=== PATIENT | male | born 1950 | race Caucasian/White ===

== ENCOUNTER → 2017-01-08 | Outpatient (CLI) | payer OTHER ==
[2017-01-08 17:57] LABS: BASOPHILS % (AUTO) 0.3 % (0.2-1.0); EOSINOPHILS # (AUTO) 0.1 x10^3/uL (0.0-0.2); HEMATOCRIT 43.5 % (42.0-54.0); HEMOGLOBIN 14.6 g/dL (13.5-18.0); LYMPHOCYTES # (AUTO) 3.1 X10^3/uL (1.3-2.9); MEAN CORPUSCULAR HEMOGLOBIN 30.6 pg (27.0-34.0); MEAN CORPUSCULAR HGB CONC 33.6 g/dL (33.0-35.0); MEAN CORPUSCULAR VOLUME 91.1 fL (80.0-100.0); MEAN PLATELET VOLUME 8.4 fL (7.4-11.0); MONOCYTES # (AUTO) 0.6 x10^3/uL (0.3-0.8); NEUTROPHILS # (AUTO) 4.9 x10^3/uL (2.2-4.8); NEUTROPHILS % (AUTO) 56.7 % (42.0-75.0); PLATELET COUNT 166 X10^3/uL (150.0-450.0); RED BLOOD COUNT 4.78 X10^6/uL (4.7-6.0); RED CELL DISTRIBUTION WIDTH 13.5 % (11.6-16.5); WHITE BLOOD COUNT 8.7 X10^3/uL (3.6-10.0)
[2017-01-08 18:09] LABS: HEMOGLOBIN A1C 11.9 % (4.5-6.2)
[2017-01-08 18:21] LABS: CHOL/HDL RATIO 2.8 (0.0-5.0); CHOLESTEROL 116 mg/dL (0-200); HDL CHOLESTEROL 41 mg/dL (40-60); TRIGLYCERIDES 101 mg/dL (0-150); URIC ACID 5.1 mg/dL (3.5-7.2)
[2017-01-08 18:31] LABS: CREATININE,URINE 35.65 mg/dL (40-278); MICROALBUMIN,URINE 56.7 mg/L
[2017-01-08 18:53] LABS: ERYTHROCYTE SEDIMENTATION RATE 8 MM/HOUR (0-15)
[2017-01-08 19:13] LABS: RHEUMATOID FACTOR NEGATIVE (NEGATIVE)
[2017-01-09 14:33] LABS: ALANINE AMINOTRANSFERASE 21 Units/L (12-78); ALBUMIN 3.6 g/dL (3.4-5.0); ALKALINE PHOSPHATASE 100 Units/L (46-116); ASPARTATE AMINO TRANSFERASE 10 Units/L (15-37); BLOOD UREA NITROGEN 19 mg/dL (7-18); CALCIUM 9.1 mg/dL (8.5-10.1); CARBON DIOXIDE 28.1 mmol/L (21-32); CHLORIDE 103 mmol/L (98-107); COR NA(FOR HYPERGLY) 146 mmol/L (136-145); CREATININE 1.51 mg/dL (0.70-1.30); SODIUM 139 mmol/L (136-145); TOTAL PROTEIN 6.4 g/dL (6.4-8.2); eGFR BLACK RACES 60 (>60); eGFR NON BLACK RACES 49 (>60)
== END | disposition home or self-care (01) | DRG 639 ==
LOC: LAB 17:18
PROVIDERS: ATTEND Nurse Practitioner Family
DX: E11.69 Type 2 diabetes mellitus with other specified complication (principal); M25.50 Pain in unspecified joint; E11.610 Type 2 diabetes mellitus with diabetic neuropathic arthropathy
CPT/HCPCS: 36415; 80053; 80061; 82043; 82306; 82607; 83036; 84550; 85025; 85652; 86140; 86308; 86430; 86592

== ENCOUNTER → 2017-01-11 | Outpatient (CLI) | payer OTHER ==
--- NOTE | 2017-01-12 11:22 | RAD ---
HISTORY: Back pain, radiculopathy Study: Lumbar spine AP, lateral, spot Comparison: None Findings: The alignment is normal. The vertebral bodies are of average height. The disc spaces are preserved. D iffuse spondylosis is present. The pedicles are intact. The SI joints are normal. Facet degenerative joint disease is present bilaterally L4-5, L5-S1. IMPRESSION: Facet degenerative joint disease as described. Diffuse spondylosis Reported By:
--- NOTE | 2017-01-12 11:24 | RAD ---
HISTORY: Neck pain Study: Cervical spine AP and lateral Comparison: None Findings: The prevertebral soft tissues are normal. The alignment is normal. The vertebral bodies are of averag e height. The disc spaces are preserved. Flowing anterior osteophyte formation is present in the lowe r cervical spine. The odontoid is intact. Diffuse bilateral facet degenerative joint disease is prese nt. IMPRESSION: Diffuse bilateral facet degenerative joint disease Anterior spondylosis Reported By:
== END | disposition home or self-care (01) | DRG 552 ==
LOC: RAD 11:55
PROVIDERS: ATTEND Nurse Practitioner Family
DX: M54.17 Radiculopathy, lumbosacral region (principal); M47.892 Other spondylosis, cervical region; M47.896 Other spondylosis, lumbar region
CPT/HCPCS: 72040; 72072; 72100

== ENCOUNTER → 2017-01-28 | Outpatient (CLI) | payer OTHER ==
[2017-01-28 11:53] LABS: BASOPHILS # (AUTO) 0.1 X10^3/uL (0.0-0.1); BASOPHILS % (AUTO) 0.9 % (0.2-1.0); EOSINOPHILS # (AUTO) 0.1 x10^3/uL (0.0-0.2); EOSINOPHILS % (AUTO) 0.9 % (0.9-2.9); HEMATOCRIT 43.8 % (42.0-54.0); HEMOGLOBIN 15.1 g/dL (13.5-18.0); LYMPHOCYTES # (AUTO) 2.9 X10^3/uL (1.3-2.9); LYMPHOCYTES % (AUTO) 34.4 % (21.0-51.0); MEAN CORPUSCULAR HEMOGLOBIN 30.7 pg (27.0-34.0); MEAN CORPUSCULAR HGB CONC 34.4 g/dL (33.0-35.0); MEAN CORPUSCULAR VOLUME 89.3 fL (80.0-100.0); MEAN PLATELET VOLUME 7.8 fL (7.4-11.0); MONOCYTES # (AUTO) 0.6 x10^3/uL (0.3-0.8); MONOCYTES % (AUTO) 7.2 % (0.0-13.0); NEUTROPHILS # (AUTO) 4.8 x10^3/uL (2.2-4.8); NEUTROPHILS % (AUTO) 56.6 % (42.0-75.0); PLATELET COUNT 166 X10^3/uL (150.0-450.0); RED BLOOD COUNT 4.91 X10^6/uL (4.7-6.0); RED CELL DISTRIBUTION WIDTH 13.3 % (11.6-16.5); WHITE BLOOD COUNT 8.5 X10^3/uL (3.6-10.0)
[2017-01-28 12:01] LABS: C-REACTIVE PROTEIN 1.8 mg/L (0-3.0); CALCIUM 9.3 mg/dL (8.5-10.1); CARBON DIOXIDE 32.8 mmol/L (21-32); CREATININE 1.58 mg/dL (0.70-1.30)
[2017-01-28 12:27] LABS: ERYTHROCYTE SEDIMENTATION RATE 12 MM/HOUR (0-15)
--- NOTE | 2017-01-28 12:59 | RAD ---
HISTORY: Cough, pleurodynia Study: Two views the chest Comparison: None Findings: The trachea is midline. The cardiac silhouette is unremarkable. Subsegmental atelectasis and/or sca rring are noted within the left lower lobe. If symptoms persist recommend continued follow-up to excl ude developing infiltrate. Correlation with CT may be helpful as well. There is flattening of the hem idiaphragms with increased retrosternal airspace. Degenerative changes are seen within the visualized spine. IMPRESSION: 1. Left basilar sub atelectasis and/or scarring. Reported By:
[2017-01-28 13:47] LABS: MYCOPLASMA PNEUMONIAE IGM AB NEGATIVE (NEGATIVE)
== END | disposition home or self-care (01) ==
LOC: LAB 11:06
PROVIDERS: ATTEND Nurse Practitioner Family
DX: R07.81 Pleurodynia (principal); R05 Cough; J98.11 Atelectasis
CPT/HCPCS: 36415; 71020; 80048; 85025; 85652; 86140; 86157; 86738; 87070; 87205

== ENCOUNTER → 2017-03-04 | Outpatient (CLI) | payer OTHER ==
[~2017-03-04] MED LIST: NS IV ONE
[2017-03-04 09:56] LABS: CREATININE 1.32 mg/dL (0.70-1.30)
--- NOTE | 2017-03-05 07:13 | CT ---
HISTORY: Chronic cough with prior pneumonia approximately 2 months ago. Study: CT chest with contrast Comparison: Chest x-ray dated January 28, 2017. Technique: Multiple axial images of the chest were obtained from the thoracic inlet to the upper abdo men after the administration of IV contrast. Dose reduction techniques including Automated Exposure C ontrol (AEC) and adjustment of mA and kV were utilized. Findings: The mediastinum does not demonstrate significant pathological lymphadenopathy. There is no paracardi al effusion observed. The thoracic aorta is normal in its contour without evidence for aneurysmal di latation. Moderate to severe atherosclerotic vascular calcifications of the coronary arteries. Limite d opacification of the pulmonary arteries. Otherwise, the central pulmonary arterial system does not demonstrate central filling defects to suggest pulmonary emboli. Bibasilar scarring versus atelectasis. No obvious pulmonary nodule, mass, focal consolidation, pleura l effusion, or pneumothorax. The right kidney is small, which may represent chronic renal disease. 1. 2 cm left adrenal gland lesion with Hounsfield units of less than 10. This represents a benign adenom a. Remaining upper abdominal structures are unremarkable. Degenerative changes of the spine. No aggre ssive osseous lesions. IMPRESSION: 1. No CT evidence of acute thoracic pathology or pulmonary embolus. 2. Moderate to severe coronary artery calcification. Recommend risk stratification and consider Cardi ology consultation. 3. Other chronic findings as above. Reported By:
== END | disposition home or self-care (01) | DRG 203 ==
LOC: RAD 09:25
PROVIDERS: ATTEND Nurse Practitioner Family
DX: J20.8 Acute bronchitis due to other specified organisms (principal); I25.10 Atherosclerotic heart disease of native coronary artery without angina pectoris
CPT/HCPCS: 36415; 71260; 82565; 84520; A4222

== ENCOUNTER → 2017-04-08 | Outpatient (CLI) | payer OTHER ==
--- NOTE | 2017-04-09 15:27 | MRI ---
HISTORY: Low back pain Study: MRI lumbar spine without contrast Comparison: Radiograph 01/11/2017 Technique: Multiplanar multi-sequence MRI of the lumbar spine was obtained. Sagittal T1, sagittal T2 , and stir weighted images, axial T1, and axial T2 images were obtained. Findings: The lumbar spine demonstrates normal alignment. No abnormal cord or marrow signal identified. The co nus of the cord terminates normally. There is atrophy of the right kidney. The left kidney is normal in size. The urinary bladder appears distended. Vertebral body heights are preserved. Multilevel spo ndylosis and disc desiccation is present. T12 -- L1: Mild facet degenerative changes without stenosis. L1 -- L2: Mild facet degenerative changes and lateral disc bulging without significant stenosis. L2 -- L3: Moderate facet degenerative changes and lateral disc bulging asymmetric to the right result ing in moderate right foraminal stenosis. L3 -- L4: Moderate facet degenerative changes and ligamentum thickening with a broad-based circumfere ntial disc bulge resulting in mild spinal canal narrowing and moderate bilateral foraminal stenosis. L4 -- L5: Moderate to severe spinal canal stenosis due to facet hypertrophic changes, ligamentum thic kening, and a broad-based disc bulge. There is also moderate to severe bilateral foraminal and latera l recess stenosis, worse on the left. L5 -- S1: Facet degenerative changes without significant stenosis. IMPRESSION: 1. Moderate to severe spinal canal stenosis at L4-5 as well as moderate to severe bilateral foraminal and lateral recess stenosis, worse on the left at this level. 2. Moderate foraminal stenosis on the right at L2-L3 and bilaterally at L3-L4. 3. Incidental note of atrophy of the right kidney. Reported By:
== END | disposition home or self-care (01) | DRG 552 ==
LOC: RAD 14:52
PROVIDERS: ATTEND Nurse Practitioner Family
DX: M54.17 Radiculopathy, lumbosacral region (principal); M48.061 Spinal stenosis, lumbar region without neurogenic claudication
CPT/HCPCS: 72148

== ENCOUNTER 2017-12-13 04:27 | Inpatient (IN) ==
[2017-12-13 04:39] VITALS: BMI 24.3
[2017-12-13] MEDS ORDERED: NS 1000 ML 1,000 ML ONE ×2 (04:41→06:26)
[2017-12-13] MEDS ORDERED: NS 1000 ML 1,000 ML IV ONE ×2 (04:50→05:00)
[2017-12-13 05:07] LABS: BASOPHILS # (AUTO) 0.1 X10^3/uL (0.0-0.1); BASOPHILS % (AUTO) 0.5 % (0.2-1.0); EOSINOPHILS # (AUTO) 0.1 x10^3/uL (0.0-0.2); EOSINOPHILS % (AUTO) 0.5 % (0.9-2.9); HEMATOCRIT 38.8 % (42.0-54.0); HEMOGLOBIN 13.3 g/dL (13.5-18.0); LYMPHOCYTES # (AUTO) 2.4 X10^3/uL (1.3-2.9); LYMPHOCYTES % (AUTO) 15.2 % (21.0-51.0); MEAN CORPUSCULAR HEMOGLOBIN 30.4 pg (27.0-34.0); MEAN CORPUSCULAR HGB CONC 34.1 g/dL (33.0-35.0); MEAN CORPUSCULAR VOLUME 89.2 fL (80.0-100.0); MEAN PLATELET VOLUME 7.9 fL (7.4-11.0); MONOCYTES # (AUTO) 1.3 x10^3/uL (0.3-0.8); MONOCYTES % (AUTO) 8.4 % (0.0-13.0); NEUTROPHILS # (AUTO) 11.6 x10^3/uL (2.2-4.8); NEUTROPHILS % (AUTO) 75.4 % (42.0-75.0); PLATELET COUNT 158 X10^3/uL (150.0-450.0); RED BLOOD COUNT 4.35 X10^6/uL (4.7-6.0); RED CELL DISTRIBUTION WIDTH 13.4 % (11.6-16.5); WHITE BLOOD COUNT 15.4 X10^3/uL (3.6-10.0)
--- NOTE | 2017-12-13 05:12 | DR.GENAD ---
HPI Time Seen Time Seen by Provider: 12/13/17 05:07 PCP Primary Care Physician: Natalie Yost Complaint/Symptoms Chief Complaint Doctors Comments: Patient states that he has been sick since Wednesday (two days) with vomiting. He denies diarrhea or fever. He denies cardiopulmonary disease. His spouse states that the vomiting was almost continuous of brownish material. He is alert in NAD Chief Complaint:: States that he been sick on his stomach and dizziness, he states that he can not walk and does not have any strength.Eating intake is poor. Self Treatment fo Chief Complaint: No treatment Source History Provided: Patient Mode of Arrival Mode of Arrival: Wheelchair Timing Onset of Chief Complaint: 12/10/17 PMH PMH Past Medical History: Yes Past Medical History: Diabetes Past Medical History Comment: Stomach Ulcers Past Surgical History: No Family History History of Family Medical Conditions: Yes Family Medical History: Cancer and Coronary Artery Disease Social History Does patient currently use any type of tobacco product: No Have you used tobacco products in the last 12 months: No Type of Tobacco Use: Cigarettes How many years tobacco product used: 20 Does any household member use tobacco: No Alcohol Use: None Lives With: Spouse Lives Where: Home infectious screening In the last 2 months have you had wt loss of >10#?: NO Have you had fever, night sweats or hemotysis?: No Have you traveled outside the country in the last 6 months?: No Isolation: Standard ROS Review of Systems Constitutional: No Symptoms Reported and Weakness Eyes: No Symptoms Reported ENTM: No Symptoms Reported Respiratoy: Non-Productive Cough Cardiovascular: No Symptoms Reported; negative Chest Pain Gastrointestinal/Abdominal: No Symptoms Reported Genitourinary: No Symptoms Reported Neurological: No Symptoms Reported Musculoskeletal: No Symptoms Reported Integumentary: No Symptoms Reported Hematologic/Lymphatic: No Symptoms Reported Endocrine: No Symptoms Reported PE Vital Signs Vitals: Temperature 97.6 F Pulse Rate [Apical] 87 Pulse Rate 83 Respiratory Rate 15 Blood Pressure [Right Arm] 99/63 Blood Pressure 68/51 O2 Sat by Pulse Oximetry 93 General Limitations: No Limitations General Appearance: Alert and In No Apparent Distress; negative Anxious, Lethargic and In Distress Head Head Exam: Normal Inspection, Atraumatic and Normocephalic Eyes Eye exam: Normal Appearance, PERRL and EOMI ENT ENT Exam: Normal Exam, Normal Oropharynx (dry), Normal External Ear Exam, Mucous Membranes Dry and TM's Normal Bilaterally External Ear Exam: Normal External Inspection and Auricular Hematoma TM/Canal Exam: Bilateral: Normal Nose Exam: Normal Nose Exam Mouth Exam: Normal Inspection; negative Lip Swelling and Tongue Swelling Throat Exam: Normal Inspection Neck Neck Exam: Normal Inspection and Full ROM Chest Chest Inspection: Normal Inspection and Symmetric Chest Wall Rise Respiratory Respiratory Exam: Respiratory Distress Respiratory Exam: Bilateral: Clear to Auscultation Cardiovascular Cardiovascular Exam: Regular Rate and Normal Rhythm Abdominal Exam Abdominal Exam: Normal Inspection and Normal Bowel Sounds; negative Rebound Abdominal Tenderness: negative RUQ, RLQ, LUQ, LLQ, Epigastrium, Diffuse and Severe Extremities Extremities Exam: Normal Inspection and Full ROM; negative Normal Capillary Refill Back Back Exam: Normal Inspection and Full ROM Neurologic Neurological Exam: Alert, Oriented X3 and CN II-XII Intact Psychiatric Psychiatric Exam: Normal Affect, Normal Mood and Agitated COURSE Treatment Treatment: Patient hypotensive, trendelenburg position, initial BP 68/50; increased to 99/57 s/p 3L. patient is alert in no distress. Denies any pain or respiratory distress. Reevaluation 1st: Improved (0550) Consultation Called: 06:30 Consultation Comments: Dr. Cleaning agreed to admit for further evaluation and treatment. [facility] Labs Reviewed Laboratory Results Reviewed?: Yes Result Diagrams: 12/13/17 04:45 12/13/17 04:45 Laboratory: INR Target Range - 12/13/17 04:45 INR 0.94 (0.8-1.3) 12/13/17 04:45 APTT 34.0 SECONDS (22.9-36.5) 12/13/17 04:45 PTT Comment - 12/13/17 04:45 Sodium 137 mmol/L (136-145) 12/13/17 04:45 Corrected Sodium 139 mmol/L (136-145) 12/13/17 04:45 Potassium 4.1 mmol/L (3.5-5.1) 12/13/17 04:45 Chloride 100 mmol/L (98-107) 12/13/17 04:45 Carbon Dioxide 32.1 mmol/L (21-32) H 12/13/17 04:45 BUN 63 mg/dL (7-18) H 12/13/17 04:45 Creatinine 3.32 mg/dL (0.70-1.30) H 12/13/17 04:45 Est GFR (MDRD) Af Amer 24 (>60) L 12/13/17 04:45 Est GFR (MDRD) Non-Af 20 (>60) L 12/13/17 04:45 Glucose 168 mg/dL (65-99) H 12/13/17 04:45 POC Glucose (mg/dL) 164 mg/dL (65-99) H 12/13/17 05:09 Calcium 8.4 mg/dL (8.5-10.1) L 12/13/17 04:45 Corrected Calcium 9.4 mg/dL (8.5-10.1) 12/13/17 04:45 Total Bilirubin 0.50 mg/dL (0.2-1.0) 12/13/17 04:45 AST 13 Units/L (15-37) L 12/13/17 04:45 ALT 26 Units/L (12-78) 12/13/17 04:45 Alkaline Phosphatase 82 Units/L (46-116) 12/13/17 04:45 Creatine Kinase 31 Units/L (39-308) L 12/13/17 04:45 CK-MB (CK-2) 1.7 ng/mL (0-4.0) 12/13/17 04:45 CK/CKMB % Calc 5.5 % (<4) 12/13/17 04:45 Troponin I < 0.02 ng/mL (0-1.5) 12/13/17 04:45 C-Reactive Protein 178.90 mg/L (0-3.0) H 12/13/17 04:45 Total Protein 6.3 g/dL (6.4-8.2) L 12/13/17 04:45 Albumin 2.8 g/dL (3.4-5.0) L 12/13/17 04:45 Globulin 3.5 g/dL (2.5-4.5) 12/13/17 04:45 Albumin/Globulin Ratio 0.8 Ratio (1.1-2.1) L 12/13/17 04:45 Diagnosis Discharge Problem: Acute prerenal azotemia, Admitted with dehydration
[2017-12-13 05:14] LABS: BLOOD UREA NITROGEN 63 mg/dL (7-18); CALCIUM 8.4 mg/dL (8.5-10.1); CARBON DIOXIDE 32.1 mmol/L (21-32); CHLORIDE 100 mmol/L (98-107); COR NA(FOR HYPERGLY) 139 mmol/L (136-145); CREATININE 3.32 mg/dL (0.70-1.30); SODIUM 137 mmol/L (136-145); TROPONIN I < 0.02 ng/mL (0-1.5); eGFR NON BLACK RACES 20 (>60)
[2017-12-13 05:19] LABS: ALANINE AMINOTRANSFERASE 26 Units/L (12-78); ALBUMIN 2.8 g/dL (3.4-5.0); ALKALINE PHOSPHATASE 82 Units/L (46-116); ASPARTATE AMINO TRANSFERASE 13 Units/L (15-37); CKMB % 5.5 % (<4); COR CA(FOR HYPOALB) 9.4 mg/dL (8.5-10.1); CREATINE KINASE 31 Units/L (39-308); CREATINE KINASE MB 1.7 ng/mL (0-4.0); TOTAL PROTEIN 6.3 g/dL (6.4-8.2)
[2017-12-13] MEDS ORDERED: NS 1000 ML 2,000 ML ONE (05:47)
--- NOTE | 2017-12-13 05:53 | RAD ---
Chest, one view Indication: Weakness Comparison: 01/28/2017 Findings: The left costophrenic sulcus was excluded. Heart size is normal. The lungs are clear withou t focal infiltrates or large pleural effusion. Impression: No acute chest process. Reported By:
[2017-12-13] MEDS ORDERED: HumuLIN R SUBCUT PRN (06:44)
[2017-12-13] MEDS ORDERED: ZESTRIL TAB 20 MG PO SCH (07:00)
[2017-12-13] MEDS ORDERED: NS 1000 ML 1,000 ML IV SCH (07:00)
[2017-12-13] MEDS ORDERED: JANUVIA PO SCH (09:00)
[2017-12-13] MEDS ORDERED: ASPIRIN EC 81 MG PO SCH (09:00)
[2017-12-13] MEDS ORDERED: NEURONTIN CAP 400 MG PO SCH (09:00)
[2017-12-13] MEDS ORDERED: INSULIN DETEMIR subcut SCH (09:00)
[2017-12-13] MEDS: NS 1000 ML 1,000 ML IV SCH ×4 (09:44→20:42)
[2017-12-13] MEDS: NORCO 5/325 MG TAB PO SCH ×2 (09:47→20:42)
[2017-12-13] MEDS: ACTOS PO SCH (09:47)
[2017-12-13] MEDS: NEURONTIN CAP 400 MG PO SCH ×2 (09:47→21:00)
[2017-12-13] MEDS: ASPIRIN EC 81 MG PO SCH (09:47)
[2017-12-13] MEDS: JANUVIA PO SCH (09:55)
[2017-12-13] MEDS: DONNATAL TAB PO SCH ×4 (10:23→20:44)
--- NOTE | 2017-12-13 12:18 | RAD ---
HISTORY: Acute left lower quadrant pain and vomiting Study: KUB Comparison: Lumbar spine x-rays done 01/11/2017. Findings: Bowel gas pattern is nonspecific. No evidence of bowel obstruction is seen. No opaque stone is identi fied. There is multilevel lumbar spondylosis. Degenerative changes are present involving both hips. IMPRESSION: No evidence of bowel obstruction. Reported By:
[2017-12-13] MEDS: HumuLIN R SUBCUT PRN ×3 (13:18→20:53)
[2017-12-13] MEDS ORDERED: SNACK - Diabetic Appropriate PO SCH (20:00)
[2017-12-13] MEDS ORDERED: LIPITOR TAB 10 MG PO SCH (21:00)
[2017-12-13] MEDS: SNACK - Diabetic Appropriate PO SCH (21:23)
[2017-12-14] MEDS: NS 1000 ML 1,000 ML IV SCH ×6 (01:55→17:29)
[2017-12-14] MEDS ORDERED: COLACE CAP 100 MG PO PRN (04:08)
[2017-12-14 05:50] LABS: BASOPHILS # (AUTO) 0.1 X10^3/uL (0.0-0.1); BASOPHILS % (AUTO) 0.5 % (0.2-1.0); EOSINOPHILS # (AUTO) 0.1 x10^3/uL (0.0-0.2); EOSINOPHILS % (AUTO) 0.5 % (0.9-2.9); HEMOGLOBIN 13.6 g/dL (13.5-18.0); LYMPHOCYTES # (AUTO) 1.7 X10^3/uL (1.3-2.9); LYMPHOCYTES % (AUTO) 12.2 % (21.0-51.0); MEAN CORPUSCULAR HEMOGLOBIN 30.6 pg (27.0-34.0); MEAN PLATELET VOLUME 7.8 fL (7.4-11.0); NEUTROPHILS # (AUTO) 10.9 x10^3/uL (2.2-4.8); NEUTROPHILS % (AUTO) 79.8 % (42.0-75.0); PLATELET COUNT 164 X10^3/uL (150.0-450.0); RED BLOOD COUNT 4.44 X10^6/uL (4.7-6.0); RED CELL DISTRIBUTION WIDTH 13.7 % (11.6-16.5); WHITE BLOOD COUNT 13.7 X10^3/uL (3.6-10.0)
[2017-12-14] MEDS ORDERED: PEPCID 20 MG IV PREMIX* 20 MG/50 ML BAG IV ONE (06:00)
[2017-12-14 06:02] LABS: ALBUMIN 2.6 g/dL (3.4-5.0); CALCIUM 7.8 mg/dL (8.5-10.1); CARBON DIOXIDE 23.4 mmol/L (21-32); COR CA(FOR HYPOALB) 8.9 mg/dL (8.5-10.1); CREATININE 1.66 mg/dL (0.70-1.30); TOTAL PROTEIN 6.1 g/dL (6.4-8.2)
[2017-12-14] MEDS ORDERED: ZOFRAN INJ 4 MG VIAL ONE (07:31)
[2017-12-14] MEDS: ZOFRAN INJ 4 MG VIAL IVP PRN ×2 (07:36→21:04)
[2017-12-14] MEDS: DONNATAL TAB PO SCH ×4 (08:12→21:02)
[2017-12-14] MEDS: ACTOS PO SCH (08:12)
[2017-12-14] MEDS: NEURONTIN CAP 400 MG PO SCH ×2 (08:12→21:02)
[2017-12-14] MEDS: NORCO 5/325 MG TAB PO SCH ×4 (08:12→21:03)
[2017-12-14] MEDS: JANUVIA PO SCH (08:13)
[2017-12-14] MEDS: ASPIRIN EC 81 MG PO SCH (08:13)
[2017-12-14] MEDS: COLACE CAP 100 MG PO SCH ×2 (08:19→21:00)
[2017-12-14] MEDS: LINZESS PO SCH (08:20)
[2017-12-14] MEDS: HumuLIN R SUBCUT PRN ×3 (11:05→21:30)
[2017-12-14] MEDS ORDERED: MAALOX or MYLANTA PO PRN (11:23)
[2017-12-14] MEDS: SNACK - Diabetic Appropriate PO SCH (20:06)
[2017-12-14] MEDS: LIPITOR TAB 10 MG PO SCH (21:05)
--- NOTE | 2017-12-14 22:58 | RAD ---
HISTORY: NG tube placement, vomiting Study: Single-view of the abdomen Comparison: 12/13/2017 Findings: Enteric tube terminates in the region of the mid stomach. Bowel gas pattern is nonspecific, nonobstru ctive. Lung bases are clear. IMPRESSION: 1. Enteric tube terminates in the mid stomach. Reported By:
[2017-12-15] MEDS: NS 1000 ML 1,000 ML IV SCH ×4 (04:12→16:24)
[2017-12-15] MEDS: NORCO 5/325 MG TAB PO SCH ×3 (05:22→13:48)
[2017-12-15 06:13] LABS: BASOPHILS # (AUTO) 0.1 X10^3/uL (0.0-0.1); BASOPHILS % (AUTO) 0.4 % (0.2-1.0); EOSINOPHILS % (AUTO) 0.1 % (0.9-2.9); HEMATOCRIT 39.8 % (42.0-54.0); HEMOGLOBIN 13.5 g/dL (13.5-18.0); LYMPHOCYTES # (AUTO) 1.6 X10^3/uL (1.3-2.9); LYMPHOCYTES % (AUTO) 12.5 % (21.0-51.0); MEAN CORPUSCULAR HEMOGLOBIN 30.5 pg (27.0-34.0); MEAN CORPUSCULAR HGB CONC 34.1 g/dL (33.0-35.0); MEAN CORPUSCULAR VOLUME 89.5 fL (80.0-100.0); MEAN PLATELET VOLUME 7.2 fL (7.4-11.0); MONOCYTES # (AUTO) 0.8 x10^3/uL (0.3-0.8); MONOCYTES % (AUTO) 6.4 % (0.0-13.0); NEUTROPHILS # (AUTO) 10.5 x10^3/uL (2.2-4.8); NEUTROPHILS % (AUTO) 80.6 % (42.0-75.0); PLATELET COUNT 172 X10^3/uL (150.0-450.0); RED BLOOD COUNT 4.45 X10^6/uL (4.7-6.0); RED CELL DISTRIBUTION WIDTH 13.9 % (11.6-16.5)
[2017-12-15 06:24] LABS: ALANINE AMINOTRANSFERASE 14 Units/L (12-78); ALBUMIN 2.5 g/dL (3.4-5.0); ALKALINE PHOSPHATASE 79 Units/L (46-116); ASPARTATE AMINO TRANSFERASE 12 Units/L (15-37); BLOOD UREA NITROGEN 34 mg/dL (7-18); CARBON DIOXIDE 20.7 mmol/L (21-32); CHLORIDE 109 mmol/L (98-107); COR CA(FOR HYPOALB) 9.2 mg/dL (8.5-10.1); COR NA(FOR HYPERGLY) 144 mmol/L (136-145); CREATININE 1.43 mg/dL (0.70-1.30); SODIUM 141 mmol/L (136-145); eGFR NON BLACK RACES 52 (>60)
--- NOTE | 2017-12-15 06:34 | RAD ---
HISTORY: Nausea, vomiting, abdominal pain Study: Flat and upright abdomen, PA chest Comparison: 12/14/2017 Findings: There is nasogastric tube present. The abdominal gas pattern is nonspecific and nonobstructive. No pn eumoperitoneum is identified. No abnormal masses or abnormal calcifications are present. The chest is clear. IMPRESSION: Unremarkable obstruction series Reported By:
[2017-12-15] MEDS ORDERED: CITROMA NG ONE (08:12)
[2017-12-15] MEDS: JANUVIA PO SCH (09:25)
[2017-12-15] MEDS: LIPITOR TAB 10 MG PO SCH (09:25)
[2017-12-15] MEDS: NEURONTIN CAP 400 MG PO SCH (09:26)
[2017-12-15] MEDS: ASPIRIN EC 81 MG PO SCH (09:26)
[2017-12-15] MEDS: LINZESS PO SCH (09:26)
[2017-12-15] MEDS: ACTOS PO SCH (09:30)
[2017-12-15] MEDS: ZOFRAN INJ 4 MG VIAL IVP PRN ×2 (09:33→15:05)
[2017-12-15] MEDS: HumuLIN R SUBCUT PRN ×2 (11:24→16:24)
[2017-12-15] MEDS ORDERED: DILAUDID INJ IVP PRN (14:01)
--- NOTE | 2017-12-15 14:54 | CT ---
HISTORY: Nausea, vomiting, abdominal pain Study: CT abdomen and pelvis without contrast Comparison: Same day radiograph Technique: Multiple axial images of the abdomen and pelvis were obtained without IV contrast. Dose reduction t echniques including Automated Exposure Control (AEC) and adjustment of mA and kV were utilized. Findings: Please note evaluation is limited without use of IV contrast. There is a small left pleural effusion with left basilar atelectasis. Heart size is normal. The live r, spleen, pancreas, and adrenal glands are unremarkable in their unenhanced CT appearance. The gallb ladder is normal. There is atrophy of the right kidney. No renal calculi or obstructive uropathy iden tified. No free intraperitoneal air. There is gastric distention with NG tube terminating in the stomach. Mul tiple dilated small bowel loops with scattered air-fluid levels are noted measuring up to 4.2 cm. The re is a transition point in the right mid to lower abdomen approximately axial image 59 and coronal i mage 29 with decompression of distal small bowel loops and colon concerning for obstruction. There is a moderate amount of free fluid present suggesting reactive ascites. The appendix is normal. Inciden dottie note is made of a 4.6 x 3.1 cm fatty mass associated with the rectal wall suggesting a lipoma on axial image 80. There are degenerative changes of the lumbosacral spine. Limited evaluation of vascular structures du e to lack of contrast. No pathologically enlarged lymph nodes are identified. The urinary bladder is unremarkable. IMPRESSION: 1. Findings as described concerning for small bowel obstruction with transition point in the right mi d to lower abdomen. Surgical evaluation is recommended. 2. Moderate amount of free fluid that may represent reactive ascites. 3. Small left pleural effusion. 4. 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 5. Atrophy of the right kidney. Reported By:
[2017-12-15] MEDS ORDERED: DILAUDID INJ IVP ONE (16:05)
[2017-12-15 16:16] VITALS: BP 132/69
[2017-12-15] MEDS ORDERED: COLACE SYRUP 100 MG UDC NG SCH (21:00)
== END 2017-12-15 19:40 | disposition short-term general hospital (02) | DRG 392 ==
LOC: ER 04:27 → ICU 07:15
PROVIDERS: ADMIT Obstetrics & Gynecology Obstetrics; ATTEND Obstetrics & Gynecology Obstetrics
DX: R79.82 Elevated C-reactive protein (CRP); N17.8 Other acute kidney failure; R94.4 Abnormal results of kidney function studies; K56.690 Other partial intestinal obstruction; D72.828 Other elevated white blood cell count; R19.7 Diarrhea, unspecified; E87.6 Hypokalemia; E86.0 Dehydration; R11.2 Nausea with vomiting, unspecified; I10 Essential (primary) hypertension; K56.41 Fecal impaction; R79.89 Other specified abnormal findings of blood chemistry; E78.2 Mixed hyperlipidemia; R53.1 Weakness; K52.89 Other specified noninfective gastroenteritis and colitis; E11.65 Type 2 diabetes mellitus with hyperglycemia
CPT/HCPCS: 36415; 71010; 71045; 74000; 74018; 74022; 74176; 80053; 82550; 82553; 84484; 85025; 85610; 85730; 86140; 93005; 93010; 96365; 96367; 99284; A4222; S0028; J1170; J1815; J2405; J7030

== ENCOUNTER 2021-06-24 14:55 | Observation (INO) ==
[2021-06-24 15:10] VITALS: BMI 29.9
--- NOTE | 2021-06-24 16:55 | DR.RPMALE ---
Rectal pain, Male PCP Primary Care Physician: Dr Helm Complaint Chief Complaint:: Pt c/o hemorrhoid pain and swelling that started 2-3 days ago and has continued to get worse. Chief Complaint Doctors Comments: PATIENT IS 71YR OLD MALE IN ER WITH PAIN AND SWELLING IN RECTAL AREA TIMES 3 DAYS. WITH SOME DRAINAGE. HISTORY DM AND HTN. PATIENT ALSO HAVE HISTORY OF HEMORRHOIDS. NO FEVER. ABLE TO HAVE BM. Source History Provided: Patient Mode of Arrival Mode of Arrival: Wheelchair PMH PMH Past Medical History: Yes Past Medical History: Anxiety, Depression, Diabetes, Dyslipidemia and Hypertension Past Medical History Comment: chronic back pain, neuropathy, hemorrhoids Past Surgical History: Yes Surgical History: Abdominal Surgery Past Surgical History Comment: SBO Family History History of Family Medical Conditions: Yes Family Medical History: Diabetes Mellitus, Cancer, [place] and Hypertension Social History Alcohol Use: None Do you use any recreational Drugs:: No Lives With: Spouse Lives Where: Home Travel Risk Coronavirus risk:travel/contact w/high risk person: No Has patient experienced Coronavirus symptoms: No Infectious screening Have you traveled outside the country in the last 6 months?: No Isolation: Standard ROS Review of Systems Constitutional: No Symptoms Reported and See HPI; negative Fever, Weakness and Fatigue Eyes: No Symptoms Reported and See HPI ENTM: No Symptoms Reported and See HPI; negative Nose Discharge and Nose Congestion Respiratoy: No Symptoms Reported and See HPI; negative Moist Cough, Short of Breath and Wheezing Cardiovascular: No Symptoms Reported and See HPI; negative Chest Pain Gastrointestinal/Abdominal: No Symptoms Reported and See HPI; negative Abdominal Pain, Diarrhea, Nausea and Vomiting Genitourinary: See HPI, Pain (RECTAL.) and Bleeding (RECTAL) Neurological: No Symptoms Reported and See HPI; negative Headache, Dizziness and Speech Problem Musculoskeletal: No Symptoms Reported, See HPI and Back Pain (LOWER BACK PAIN.) Integumentary: No Symptoms Reported and See HPI; negative Rash and Juandice Hematologic/Lymphatic: No Symptoms Reported and See HPI; negative Easy Bruising Endocrine: No Symptoms Reported and See HPI; negative Increased Thirst and Increased Urine Psychiatric: No Symptoms Reported and See HPI All Other Systems: Reviewed and Negative PE, MALE Vital Signs Vitals: Temperature 97.4 F Pulse Rate 74 Respiratory Rate 16 Blood Pressure [Left Arm] 148/73 Blood Pressure 97/57 O2 Sat by Pulse Oximetry 95 General Limitations: No Limitations General Appearance: Alert and In No Apparent Distress Head Head Exam: Normal Inspection Eyes Eye exam: Normal Appearance; negative Scleral Icterus and Conjunctival Injection ENT ENT Exam: Normal Exam, Normal Oropharynx, Normal External Ear Exam and TM's Normal Bilaterally Neck Neck Exam: Normal Inspection and Trachea Midline; negative Tenderness Chest Chest Inspection: Normal Inspection and Symmetric Chest Wall Rise; negative Tenderness Respiratory Respiratory Exam: Normal Lung Sounds Bilat; negative Accessory Muscle Use, Chest Wall Tenderness and Respiratory Distress Respiratory Exam: Bilateral: Clear to Auscultation Cardiovascular Cardiovascular Exam: Regular Rate, Normal Rhythm and Normal Heart Sounds; negative Systolic Murmur and Diastolic Murmur Abdominal Exam Abdominal Exam: Normal Inspection, Normal Bowel Sounds, Soft and Tenderness Abdominal Tenderness: Other (RECTAL SWELLING AND TENDERNESS WITH SMALL DRAINAGE.) Rectal Rectal Exam: Hemorrhoids (THROMBOSED HEMORRHIOD) and Tenderness (RECTAL TENDERNESS.) Genitourinary Exam: Male: Normal Inspection Scrotal Exam: Normal: Left Extremities Extremities Exam: Normal Inspection and Normal Capillary Refill Back Back Exam: Normal Inspection; negative (R) CVA Tenderness and (L) CVA Tenderness Neurologic Neurological Exam: Alert and Oriented X3; negative Motor Sensory Deficit Psychiatric Psychiatric Exam: Normal Affect and Normal Mood Skin Skin Exam: Warm, Dry, Intact and Normal Color MDM, MALE Additional Information Obtained Additional Information Obtained: Family Differential Diagnosis Differential Diagnosis: Perirectal Abscess, Rectal Prolapse, Thrombosed Hemorrhoid and UTI COURSE Treatment Treatment: SEE ORDERS DONE WHILE PATIENT WAS IN ER. LABS, XRAY AND EKG DISCUSSED WITH PATIENT. HE WAS ADMITTED FOR FURTHER MANAGEMENT. Consultation Consultation Comments: DISCUSSED PATIENT WITH DR. LOPEZ, SURGEON. HE WANT PCP TO ADMITTED PATIENT. DR. HELM ADMITTED PATIENT. Education/Counseling Education/Counseling: Patient and Family Educated On: Diagnosis [facility] Labs Reviewed Laboratory Results Reviewed?: Yes Result Diagrams: 06/26/21 05:41 06/26/21 05:41 Laboratory: WBC 12.3 X10^3/uL (3.6-10.0) H 06/24/21 17:55 RBC 3.03 X10^6/uL (4.7-6.0) L 06/24/21 17:55 Hgb 8.9 g/dL (13.5-18.0) L 06/24/21 17:55 Hct 27.4 % (42.0-54.0) L 06/24/21 17:55 MCV 90.4 fL (80.0-100.0) 06/24/21 17:55 MCH 29.3 pg (27.0-34.0) 06/24/21 17:55 MCHC 32.4 g/dL (33.0-35.0) L 06/24/21 17:55 RDW 14.1 % (11.6-16.5) 06/24/21 17:55 Plt Count 250 X10^3/uL (150.0-450.0) 06/24/21 17:55 MPV 6.6 fL (7.4-11.0) L 06/24/21 17:55 Neut % (Auto) 72.3 % (42.0-75.0) 06/24/21 17:55 Lymph % (Auto) 17.7 % (21.0-51.0) L 06/24/21 17:55 [place] % (Auto) 8.0 % (0.0-13.0) 06/24/21 17:55 Eos % (Auto) 0.8 % (0.9-2.9) L 06/24/21 17:55 Baso % (Auto) 1.2 % (0.2-1.0) H 06/24/21 17:55 Neut # (Auto) 8.9 x10^3/uL (2.2-4.8) H 06/24/21 17:55 Lymph # (Auto) 2.2 X10^3/uL (1.3-2.9) 06/24/21 17:55 [place] # (Auto) 1.0 x10^3/uL (0.3-0.8) H 06/24/21 17:55 Eos # (Auto) 0.1 x10^3/uL (0.0-0.2) 06/24/21 17:55 Baso # (Auto) 0.1 X10^3/uL (0.0-0.1) 06/24/21 17:55 Absolute Nucleated RBC 0.1 /100WBC 06/24/21 17:55 Sodium 144 mmol/L (136-145) 06/24/21 17:55 Corrected Sodium TNP 06/24/21 17:55 Potassium 5.4 mmol/L (3.5-5.1) H 06/24/21 17:55 Chloride 112 mmol/L (98-107) H 06/24/21 17:55 Carbon Dioxide 24.1 mmol/L (21-32) 06/24/21 17:55 BUN 50 mg/dL (7-18) H 06/24/21 17:55 Creatinine 2.14 mg/dL (0.70-1.30) H 06/24/21 17:55 Est GFR (MDRD) Af Amer 39 (>60) L 06/24/21 17:55 Est GFR (MDRD) Non-Af 32 (>60) L 06/24/21 17:55 Glucose 105 mg/dL (65-99) H 06/24/21 17:55 Calcium 8.0 mg/dL (8.5-10.1) L 06/24/21 17:55 Corrected Calcium 9.2 mg/dL (8.5-10.1) 06/24/21 17:55 Total Bilirubin 0.10 mg/dL (0.2-1.0) L 06/24/21 17:55 AST 9 Units/L (15-37) L 06/24/21 17:55 ALT 16 Units/L (12-78) 06/24/21 17:55 Alkaline Phosphatase 93 Units/L (46-116) 06/24/21 17:55 Total Protein 6.2 g/dL (6.4-8.2) L 06/24/21 17:55 Albumin 2.5 g/dL (3.4-5.0) L 06/24/21 17:55 Globulin 3.7 g/dL (2.5-4.5) 06/24/21 17:55 Albumin/Globulin Ratio 0.7 Ratio (1.1-2.1) L 06/24/21 17:55 XRAY XRAY Interpreted by: Radiologist (REPORT NOTED.) and Self EKG Rate: 76 [place]: Normal Rhythm: NSR Block: None Hypertrophy: None ST: Nonsp Opioid Opioid Risk Tool Age (Ney box if 16-45): No Total: 0 Total Score Risk Category: Low Risk Copyright: Herrera predicting aberrant behaviors Diagnosis Discharge Problem: Rectal pain, Thrombosed hemorrhoids, Strangulated hemorrhoids Instructions Instructions: Anemia Surgical Procedures for Hemorrhoids, Care After Hyperkalemia, [id number] Gastrointestinal Bleeding Surgical Procedures for Hemorrhoids Hemorrhoids, [id number] Nonsurgical Procedures for Hemorrhoids, Care After Hemorrhoids Forms: Excuse From Work or School Precautions for COVID19 [facility] Social Distancing
[2021-06-24 18:04] LABS: BASOPHILS # (AUTO) 0.1 X10^3/uL (0.0-0.1); BASOPHILS % (AUTO) 1.2 % (0.2-1.0); EOSINOPHILS # (AUTO) 0.1 x10^3/uL (0.0-0.2); EOSINOPHILS % (AUTO) 0.8 % (0.9-2.9); HEMATOCRIT 27.4 % (42.0-54.0); HEMOGLOBIN 8.9 g/dL (13.5-18.0); LYMPHOCYTES # (AUTO) 2.2 X10^3/uL (1.3-2.9); LYMPHOCYTES % (AUTO) 17.7 % (21.0-51.0); MEAN CORPUSCULAR HEMOGLOBIN 29.3 pg (27.0-34.0); MEAN CORPUSCULAR HGB CONC 32.4 g/dL (33.0-35.0); MEAN CORPUSCULAR VOLUME 90.4 fL (80.0-100.0); MEAN PLATELET VOLUME 6.6 fL (7.4-11.0); NEUTROPHILS # (AUTO) 8.9 x10^3/uL (2.2-4.8); NEUTROPHILS % (AUTO) 72.3 % (42.0-75.0); RED BLOOD COUNT 3.03 X10^6/uL (4.7-6.0); RED CELL DISTRIBUTION WIDTH 14.1 % (11.6-16.5); WHITE BLOOD COUNT 12.3 X10^3/uL (3.6-10.0)
[2021-06-24 18:17] LABS: ALANINE AMINOTRANSFERASE 16 Units/L (12-78); ALBUMIN 2.5 g/dL (3.4-5.0); ALKALINE PHOSPHATASE 93 Units/L (46-116); ASPARTATE AMINO TRANSFERASE 9 Units/L (15-37); BLOOD UREA NITROGEN 50 mg/dL (7-18); CARBON DIOXIDE 24.1 mmol/L (21-32); CHLORIDE 112 mmol/L (98-107); COR CA(FOR HYPOALB) 9.2 mg/dL (8.5-10.1); CREATININE 2.14 mg/dL (0.70-1.30); SODIUM 144 mmol/L (136-145); TOTAL PROTEIN 6.2 g/dL (6.4-8.2); eGFR NON BLACK RACES 32 (>60)
[2021-06-24] MEDS ORDERED: ZOFRAN TAB 4 MG PO PRN (20:20)
[2021-06-24] MEDS ORDERED: MORPHINE SULFATE INJ 4 MG IVP PRN (20:20)
[2021-06-24] MEDS ORDERED: LEXAPRO ONE (21:41)
[2021-06-24] MEDS ORDERED: ZESTRIL TAB 20 MG ONE (21:41)
[2021-06-24] MEDS: NEURONTIN CAP 400 MG PO SCH (21:50)
[2021-06-24] MEDS: NS 1,000 ML IV 1,000 ML IV SCH (21:50)
[2021-06-24] MEDS: ZESTRIL TAB 20 MG PO SCH ×2 (21:51→21:52)
[2021-06-24] MEDS: LEXAPRO PO SCH (21:52)
[2021-06-24] MEDS: LIPITOR TAB 40 MG PO SCH (21:52)
[2021-06-24] MEDS: FLAGYL IV PREMIX 500 MG BAG 500 MG/100 ML BAG IV SCH (21:53)
[2021-06-24 23:15] LABS: BILIRUBIN,URINE NEGATIVE (NEGATIVE); BLOOD/HEMOGLOBIN,URINE NEGATIVE (NEGATIVE); GLUCOSE, URINE 2+ (NEGATIVE); KETONES,URINE NEGATIVE (NEGATIVE); LEUKOCYTE ESTERASE ,URINE NEGATIVE (NEGATIVE); NITRITES,URINE NEGATIVE (NEGATIVE); PROTEIN,URINE 1+ (NEGATIVE); UROBILINOGEN,URINE NORMAL (NORMAL)
[2021-06-24 23:18] LABS: APPEARANCE,URINE CLEAR (CLEAR); COLOR,URINE YELLOW (YELLOW)
[2021-06-24 23:24] LABS: BACTERIA,URINE TRACE /HPF (NEGATIVE); RBC,URINE NONE SEEN /HPF (0-3); SQUAMOUS EPITHELIAL CELL,UR FEW /HPF (NEGATIVE)
[2021-06-25] MEDS: FLAGYL IV PREMIX 500 MG BAG 500 MG/100 ML BAG IV SCH ×4 (02:23→21:01)
--- NOTE | 2021-06-25 02:48 | RAD ---
PROCEDURE: Chest X-ray 1 View .HISTORY: Hemorrhoidal pain for 2-3 days.TECHNIQUE: AP view .COMPARISON: 12/13/2017.TECHNICAL QUALITY: Satisfactory .FINDINGS:Normal size heart .Mediastinum and hilar regions show no masses or lymphadenopathy .Normal central vascularity .No pulmonary consolidation, masses, pleural fluid, or pneumothorax. Linear scar versus discoid atelectasis left base.No acute bony abnormality .IMPRESSION:1. Linear scar versus discoid atelectasis left lung base.2. No other evidence of active disease.Electronically signed by: Earl Hernandez (Jun 25, 2021 02:46:44)
[2021-06-25 05:25] LABS: BASOPHILS # (AUTO) 0.1 X10^3/uL (0.0-0.1); BASOPHILS % (AUTO) 0.7 % (0.2-1.0); EOSINOPHILS # (AUTO) 0.1 x10^3/uL (0.0-0.2); EOSINOPHILS % (AUTO) 1.2 % (0.9-2.9); HEMATOCRIT 24.9 % (42.0-54.0); HEMOGLOBIN 8.2 g/dL (13.5-18.0); LYMPHOCYTES # (AUTO) 1.7 X10^3/uL (1.3-2.9); LYMPHOCYTES % (AUTO) 16.5 % (21.0-51.0); MEAN CORPUSCULAR HEMOGLOBIN 29.5 pg (27.0-34.0); MEAN CORPUSCULAR HGB CONC 32.9 g/dL (33.0-35.0); MEAN CORPUSCULAR VOLUME 89.6 fL (80.0-100.0); MEAN PLATELET VOLUME 7.2 fL (7.4-11.0); MONOCYTES # (AUTO) 0.9 x10^3/uL (0.3-0.8); MONOCYTES % (AUTO) 8.4 % (0.0-13.0); NEUTROPHILS # (AUTO) 7.6 x10^3/uL (2.2-4.8); NEUTROPHILS % (AUTO) 73.2 % (42.0-75.0); RED BLOOD COUNT 2.78 X10^6/uL (4.7-6.0); WHITE BLOOD COUNT 10.4 X10^3/uL (3.6-10.0)
[2021-06-25 05:43] LABS: ALBUMIN 2.1 g/dL (3.4-5.0); CALCIUM 7.7 mg/dL (8.5-10.1); COR CA(FOR HYPOALB) 9.2 mg/dL (8.5-10.1); CREATININE 1.59 mg/dL (0.70-1.30); TOTAL PROTEIN 5.5 g/dL (6.4-8.2)
--- NOTE | 2021-06-25 08:36 | DR.H&P ---
H&P History & Physical for Day of: H&P Date: 06/24/21 Chief Complaint Chief Complaint: Rectal pain Allergies Allergies Allergy/AdvReac Type Severity Reaction Status Date / Time No Known Drug Allergies Allergy Verified 06/24/21 14:56 History of Present Illness History of Present Illness: This is a pleasant 71 year old white male who presents with a three-day history of rectal pain and bright red blood per rectum times three days as well. He reports that the pain is from hemorrhoids and they have been getting worse over the last three days. He went to the emergency department for rectal pain and they're in the ER the physician found that he had thrombosed hemorrhoids and strangulated hemorrhoids. The emergency room physician last night called the general surgeon ecological economist and he recommended that he be admitted for hospitalization for surgical treatment of the hemorrhoids. Past Medical History Past Medical History: Anxiety, Depression, Diabetes, Dyslipidemia and Hypertension Past Surgical History Surgical History: Bowel Resection Family History Family Medical History: [place], Coronary Artery Disease and Hypertension Social History Does patient currently use any type of tobacco product: Yes Have you used tobacco products in the last 12 months: Yes Type of Tobacco Use: Cigarettes Alcohol Use: None Drug Use: None Medications Home Medications: No Known Drug Allergies Allergy (Verified 06/24/21 14:56) CONTINUE taking the following medications atorvastatin 40 mg PO HS 06/24/21 [History] chlorthalidone 25 mg PO DAILY 06/24/21 [History] escitalopram oxalate 10 mg PO HS 06/24/21 [History] meloxicam [Mobic] 7.5 mg PO DAILY 06/24/21 [History] oxycodone-acetaminophen 1 tab PO TID 06/24/21 [History] Labs Result Diagrams: 06/25/21 04:29 06/25/21 04:29 Labs: Laboratory WBC 10.4 X10^3/uL (3.6-10.0) H 06/25/21 04:29 RBC 2.78 X10^6/uL (4.7-6.0) L 06/25/21 04:29 Hgb 8.2 g/dL (13.5-18.0) L 06/25/21 04:29 Hct 24.9 % (42.0-54.0) L 06/25/21 04:29 MCV 89.6 fL (80.0-100.0) 06/25/21 04: MCH 29.5 pg (27.0-34.0) 06/25/21 04: MCHC 32.9 g/dL (33.0-35.0) L 06/25/21 04: RDW 14.0 % (11.6-16.5) 06/25/21 04:29 Plt Count 242 X10^3/uL (150.0-450.0) 06/25/21 04:29 MPV 7.2 fL (7.4-11.0) L 06/25/21 04:29 Neut % (Auto) 73.2 % (42.0-75.0) 06/25/21 04: Lymph % (Auto) 16.5 % (21.0-51.0) L 06/25/21 04: [place] % (Auto) 8.4 % (0.0-13.0) 06/25/21 04: Eos % (Auto) 1.2 % (0.9-2.9) 06/25/21 04: Baso % (Auto) 0.7 % (0.2-1.0) 06/25/21 04:29 Neut # (Auto) 7.6 x10^3/uL (2.2-4.8) H 06/25/21 04:29 Lymph # (Auto) 1.7 X10^3/uL (1.3-2.9) 06/25/21 04:29 [place] # (Auto) 0.9 x10^3/uL (0.3-0.8) H 06/25/21 04:29 Eos # (Auto) 0.1 x10^3/uL (0.0-0.2) 06/25/21 04:29 Baso # (Auto) 0.1 X10^3/uL (0.0-0.1) 06/25/21 04:29 Absolute Nucleated RBC 0.0 /100WBC 06/25/21 04:29 Sodium 143 mmol/L (136-145) 06/25/21 04:29 Corrected Sodium 145 mmol/L (136-145) 06/25/21 04:29 Potassium 5.1 mmol/L (3.5-5.1) 06/25/21 04:29 Chloride 112 mmol/L (98-107) H 06/25/21 04:29 Carbon Dioxide 23.0 mmol/L (21-32) 06/25/21 04:29 BUN 44 mg/dL (7-18) H 06/25/21 04:29 Creatinine 1.59 mg/dL (0.70-1.30) H 06/25/21 04:29 Est GFR (MDRD) Af Amer 55 (>60) L 06/25/21 04:29 Est GFR (MDRD) Non-Af 46 (>60) L 06/25/21 04:29 Glucose 175 mg/dL (65-99) H 06/25/21 04:29 POC Glucose (mg/dL) 179 mg/dL (65-99) H 06/25/21 05:02 Calcium 7.7 mg/dL (8.5-10.1) L 06/25/21 04:29 Corrected Calcium 9.2 mg/dL (8.5-10.1) 06/25/21 04:29 Total Bilirubin 0.20 mg/dL (0.2-1.0) 06/25/21 04:29 AST 8 Units/L (15-37) L 06/25/21 04:29 ALT 14 Units/L (12-78) 06/25/21 04:29 Alkaline Phosphatase 91 Units/L (46-116) 06/25/21 04:29 Total Protein 5.5 g/dL (6.4-8.2) L 06/25/21 04:29 Albumin 2.1 g/dL (3.4-5.0) L 06/25/21 04:29 Globulin 3.4 g/dL (2.5-4.5) 06/25/21 04:29 Albumin/Globulin Ratio 0.6 Ratio (1.1-2.1) L 06/25/21 04:29 Specimen Type Clean catch urine 06/24/21 23:07 Urine Color Yellow (YELLOW) 06/24/21 23:07 Urine Appearance Clear (CLEAR) 06/24/21 23:07 Urine pH 5.0 (5.0 - 8.0) 06/24/21 23:07 Ur Specific [place] 1.015 (1.000-1.030) 06/24/21 23:07 Urine Protein 1+ (NEGATIVE) 06/24/21 23:07 Urine Glucose (UA) 2+ (NEGATIVE) 06/24/21 23:07 Urine Ketones Negative (NEGATIVE) 06/24/21 23:07 Urine Occult Blood Negative (NEGATIVE) 06/24/21 23:07 Urine Nitrite Negative (NEGATIVE) 06/24/21 23:07 Urine Bilirubin Negative (NEGATIVE) 06/24/21 23:07 Urine Urobilinogen Normal (NORMAL) 06/24/21 23:07 Ur Leukocyte Esterase Negative (NEGATIVE) 06/24/21 23:07 Urine RBC None seen /HPF (0-3) 06/24/21 23:07 Urine WBC 0-2 /HPF (0-5) 06/24/21 23:07 Ur Squamous Epith Cells Few /HPF (NEGATIVE) 06/24/21 23:07 Urine Bacteria Trace /HPF (NEGATIVE) 06/24/21 23:07 Urine Mucus Few /HPF (NEGATIVE) 06/24/21 23:07 Ur Culture Indicated? No/not indicated 06/24/21 23:07 SARS CoV-2 RNA Rapid ABE Negative (NEGATIVE) 06/24/21 20:14 Blood Type A POSITIVE 06/24/21 20:36 Antibody Screen Negative 06/24/21 20:36 Review of Systems Constitutional: No Symptoms Reported Eyes: No Symptoms Reported ENT: No Symptoms Reported Respiratory: No Symptoms Reported Cardiovascular: No Symptoms Reported Gastrointestinal: Hematochezia Genitourinary: No Symptoms Reported Musculoskeletal: Back Pain Skin: No Symptoms Reported Neurological: No Symptoms Reported Physical Exam Vital Signs: Temperature 98.3 F Pulse Rate 68 Respiratory Rate 16 Blood Pressure [Left Arm] 148/73 Blood Pressure 139/71 O2 Sat by Pulse Oximetry 96 Oriented: Normal, Time, Person and Place Eyes: Normal Ear: Normal Nose: Normal Throat: Normal Respiratory: Clear Throughout Cardiovascular: Normal : Normal Auscultation: Bowel Sounds: Normal Palpation: Normal Tenderness: Normal Skin: Normal Musculoskeletal: Back:Lumbar Psychiatric: Normal Mood Description: Calm Affect: Normal Speech Pattern: Clear and Appropriate Assessment/Plan (1) Admitted with dehydration: Status: Acute Plan: IV hydration. (2) Acute prerenal azotemia: Status: Acute (3) Thrombosed hemorrhoids: Status: Acute Plan: General surgery consultation. (4) Rectal pain: Status: Acute Plan: Pain control. (5) Strangulated hemorrhoids: Status: Acute Plan: General surgery consultation. I will also check an EKGs to make sure the patient does not have any ischemic changes on his EKG prior to surgery this morning. (6) Hyperkalemia: Status: Acute Plan: IV hydration and recheck potassium level in the morning. (7) Anemia: Status: Acute Plan: I will check in anemia profile. (8) DM2 (diabetes mellitus, type 2): Status: Acute Plan: I will cover the Diabetes mellitus with a sliding scale regular insulin protocol. (9) HTN (hypertension): Status: Acute Plan: I will resume patients on blood pressure medications at this time. (10) Depression with anxiety: Status: Acute Plan: I will continue the patient's home depression medications and anti- anxiety medications at this time. Review H&P Reviewed: Yes Patient was examined?: Yes
--- NOTE | 2021-06-25 08:42 | PCM.PROG ---
Progress Note Progress Note for Day of Date of Exam: 06/25/21 Subjective Subjective: The patient is lying comfortably in bed this morning. He does not report any new problems. Is rectal pain is on a controller this time. It is noted that his Hb has dropped to 8.2 which some of this is hemodilution. His potassium has come down to 5.1 and his normalized. I have reviewed the patient's labs as well as his chest x-ray and EKG, he is cleared for surgery regarding his thrombosis and strangulated hemorrhoids. Past Medical Family Social History Past Med/Fam/Surg Hx: No changes since H&P Allergies: Allergies No Known Drug Allergies Allergy (Verified 06/24/21 14:56) Review of Systems ROS: No change since H&P Vital Signs and I&O's Vital Signs: Temperature 98.3 F Pulse Rate 68 Respiratory Rate 16 Blood Pressure [Left Arm] 148/73 Blood Pressure 139/71 O2 Sat by Pulse Oximetry 96 Intake and Output: Intake & Output 06/22/21 06/23/21 06/24/21 06/25/21 11:59 11:59 11:59 11:59 Intake Total 775 / 775 Output Total 150 / 150 Balance 625 / 625 Physical Exam Oriented: Normal, Time, Person and Place Eyes: Normal Ear: Normal Nose: Normal Throat: Normal Cardiovascular: Normal : Normal Auscultation: Bowel Sounds: Normal Tenderness: Normal Skin: Normal Musculoskeletal: Back:Lumbar Psychiatric: Normal Mood Description: Calm Affect: Normal Speech Pattern: Clear and Appropriate Laboratory and Diagnostics Result Diagrams: 06/25/21 04:29 06/25/21 04:29 Labs: Laboratory WBC 10.4 X10^3/uL (3.6-10.0) H 06/25/21 04:29 RBC 2.78 X10^6/uL (4.7-6.0) L 06/25/21 04:29 Hgb 8.2 g/dL (13.5-18.0) L 06/25/21 04:29 Hct 24.9 % (42.0-54.0) L 06/25/21 04:29 MCV 89.6 fL (80.0-100.0) 06/25/21 04:29 MCH 29.5 pg (27.0-34.0) 06/25/21 04:29 MCHC 32.9 g/dL (33.0-35.0) L 06/25/21 04:29 RDW 14.0 % (11.6-16.5) 06/25/21 04:29 Plt Count 242 X10^3/uL (150.0-450.0) 06/25/21 04:29 MPV 7.2 fL (7.4-11.0) L 06/25/21 04:29 Neut % (Auto) 73.2 % (42.0-75.0) 06/25/21 04:29 Lymph % (Auto) 16.5 % (21.0-51.0) L 06/25/21 04:29 [place] % (Auto) 8.4 % (0.0-13.0) 06/25/21 04:29 Eos % (Auto) 1.2 % (0.9-2.9) 06/25/21 04:29 Baso % (Auto) 0.7 % (0.2-1.0) 06/25/21 04:29 Neut # (Auto) 7.6 x10^3/uL (2.2-4.8) H 06/25/21 04:29 Lymph # (Auto) 1.7 X10^3/uL (1.3-2.9) 06/25/21 04:29 [place] # (Auto) 0.9 x10^3/uL (0.3-0.8) H 06/25/21 04:29 Eos # (Auto) 0.1 x10^3/uL (0.0-0.2) 06/25/21 04:29 Baso # (Auto) 0.1 X10^3/uL (0.0-0.1) 06/25/21 04:29 Absolute Nucleated RBC 0.0 /100WBC 06/25/21 04:29 Sodium 143 mmol/L (136-145) 06/25/21 04:29 Corrected Sodium 145 mmol/L (136-145) 06/25/21 04:29 Potassium 5.1 mmol/L (3.5-5.1) 06/25/21 04:29 Chloride 112 mmol/L (98-107) H 06/25/21 04:29 Carbon Dioxide 23.0 mmol/L (21-32) 06/25/21 04:29 BUN 44 mg/dL (7-18) H 06/25/21 04:29 Creatinine 1.59 mg/dL (0.70-1.30) H 06/25/21 04:29 Est GFR (MDRD) Af Amer 55 (>60) L 06/25/21 04:29 Est GFR (MDRD) Non-Af 46 (>60) L 06/25/21 04:29 Glucose 175 mg/dL (65-99) H 06/25/21 04:29 POC Glucose (mg/dL) 179 mg/dL (65-99) H 06/25/21 05:02 Calcium 7.7 mg/dL (8.5-10.1) L 06/25/21 04:29 Corrected Calcium 9.2 mg/dL (8.5-10.1) 06/25/21 04:29 Total Bilirubin 0.20 mg/dL (0.2-1.0) 06/25/21 04:29 AST 8 Units/L (15-37) L 06/25/21 04:29 ALT 14 Units/L (12-78) 06/25/21 04:29 Alkaline Phosphatase 91 Units/L (46-116) 06/25/21 04:29 Total Protein 5.5 g/dL (6.4-8.2) L 06/25/21 04:29 Albumin 2.1 g/dL (3.4-5.0) L 06/25/21 04:29 Globulin 3.4 g/dL (2.5-4.5) 06/25/21 04:29 Albumin/Globulin Ratio 0.6 Ratio (1.1-2.1) L 06/25/21 04:29 Specimen Type Clean catch urine 06/24/21 23:07 Urine Color Yellow (YELLOW) 06/24/21 23:07 Urine Appearance Clear (CLEAR) 06/24/21 23:07 Urine pH 5.0 (5.0 - 8.0) 06/24/21 23:07 Ur Specific [place] 1.015 (1.000-1.030) 06/24/21 23:07 Urine Protein 1+ (NEGATIVE) 06/24/21 23:07 Urine Glucose (UA) 2+ (NEGATIVE) 06/24/21 23:07 Urine Ketones Negative (NEGATIVE) 06/24/21 23:07 Urine Occult Blood Negative (NEGATIVE) 06/24/21 23:07 Urine Nitrite Negative (NEGATIVE) 06/24/21 23:07 Urine Bilirubin Negative (NEGATIVE) 06/24/21 23:07 Urine Urobilinogen Normal (NORMAL) 06/24/21 23:07 Ur Leukocyte Esterase Negative (NEGATIVE) 06/24/21 23:07 Urine RBC None seen /HPF (0-3) 06/24/21 23:07 Urine WBC 0-2 /HPF (0-5) 06/24/21 23:07 Ur Squamous Epith Cells Few /HPF (NEGATIVE) 06/24/21 23:07 Urine Bacteria Trace /HPF (NEGATIVE) 06/24/21 23:07 Urine Mucus Few /HPF (NEGATIVE) 06/24/21 23:07 Ur Culture Indicated? No/not indicated 06/24/21 23:07 SARS CoV-2 RNA Rapid ABE Negative (NEGATIVE) 06/24/21 20:14 Blood Type A POSITIVE 06/24/21 20:36 Antibody Screen Negative 06/24/21 20:36 Radiology Reviewed: Yes EKG Reviewed: Yes Rhythm: NSR ST: Normal Plan (1) Admitted with dehydration: Status: Acute Narrative Support Text: Improved overall this morning. Plan: IV hydration. (2) Acute prerenal azotemia: Status: Acute (3) Thrombosed hemorrhoids: Status: Acute Plan: General surgery consultation. This patient medically cleared for surgery for his strangulated hemorrhoids and thrombosed hemorrhoids today. (4) Rectal pain: Status: Acute Plan: Pain control. (5) Strangulated hemorrhoids: Status: Acute Plan: General surgery consultation. I will also check an EKGs to make sure the patient does not have any ischemic changes on his EKG prior to surgery this morning. (6) Hyperkalemia: Status: Resolved Plan: IV hydration and recheck potassium level in the morning. (7) Anemia: Status: Acute Plan: I will check in anemia profile. (8) DM2 (diabetes mellitus, type 2): Status: Acute Plan: I will cover the Diabetes mellitus with a sliding scale regular insulin protocol. (9) HTN (hypertension): Status: Acute Plan: I will resume patients on blood pressure medications at this time. (10) Depression with anxiety: Status: Acute Plan: I will continue the patient's home depression medications and anti- anxiety medications at this time.
[2021-06-25] MEDS ORDERED: ZESTRIL TAB 20 MG ONE (09:25)
[2021-06-25] MEDS: ZESTRIL TAB 20 MG PO SCH (10:51)
[2021-06-25] MEDS: NEURONTIN CAP 400 MG PO SCH ×2 (10:51→21:01)
[2021-06-25] MEDS: NS 1,000 ML IV 1,000 ML IV SCH ×2 (11:49→20:58)
[2021-06-25] MEDS ORDERED: XYLOCAINE 1% and EPINEPHRINE 1:100,000 ONE (12:59)
[2021-06-25] MEDS ORDERED: DIPRIVAN VIAL 20 ML ONE (13:56)
[2021-06-25] MEDS ORDERED: NORCO 5/325 MG TAB PO PRN (14:43)
[2021-06-25] MEDS: NovoLIN R (or HumuLIN R) SC PRN ×2 (17:15→22:52)
[2021-06-25] MEDS ORDERED: LEXAPRO ONE (20:29)
[2021-06-25] MEDS: LIPITOR TAB 40 MG PO SCH (21:00)
[2021-06-25] MEDS: LEXAPRO PO SCH (21:00)
[2021-06-26] MEDS: NS 1,000 ML IV 1,000 ML IV SCH (00:16)
[2021-06-26] MEDS: FLAGYL IV PREMIX 500 MG BAG 500 MG/100 ML BAG IV SCH ×2 (02:47→08:53)
[2021-06-26 06:21] LABS: BASOPHILS % (AUTO) 0.2 % (0.2-1.0); EOSINOPHILS % (AUTO) 0.2 % (0.9-2.9); HEMATOCRIT 25.9 % (42.0-54.0); HEMOGLOBIN 8.5 g/dL (13.5-18.0); LYMPHOCYTES # (AUTO) 1.1 X10^3/uL (1.3-2.9); LYMPHOCYTES % (AUTO) 9.6 % (21.0-51.0); MEAN CORPUSCULAR HEMOGLOBIN 29.6 pg (27.0-34.0); MEAN CORPUSCULAR VOLUME 89.9 fL (80.0-100.0); MEAN PLATELET VOLUME 6.8 fL (7.4-11.0); MONOCYTES % (AUTO) 9.1 % (0.0-13.0); NEUTROPHILS % (AUTO) 80.9 % (42.0-75.0); RED BLOOD COUNT 2.88 X10^6/uL (4.7-6.0); WHITE BLOOD COUNT 11.1 X10^3/uL (3.6-10.0)
[2021-06-26 06:25] LABS: ALBUMIN 2.3 g/dL (3.4-5.0); CALCIUM 7.7 mg/dL (8.5-10.1); CARBON DIOXIDE 22.9 mmol/L (21-32); COR CA(FOR HYPOALB) 9.1 mg/dL (8.5-10.1); CREATININE 1.5 mg/dL (0.70-1.30); TOTAL PROTEIN 5.7 g/dL (6.4-8.2)
[2021-06-26] MEDS: NovoLIN R (or HumuLIN R) SC PRN ×2 (06:25→12:42)
[2021-06-26] MEDS ORDERED: ZESTRIL TAB 20 MG ONE (08:30)
[2021-06-26] MEDS: ZESTRIL TAB 20 MG PO SCH (08:52)
[2021-06-26] MEDS: NEURONTIN CAP 400 MG PO SCH (08:52)
--- NOTE | 2021-06-26 09:18 | PCM.DCPLAN ---
DISCHARGE SUMMARY Admission Date Date of Admission: 06/24/21 Discharge Date Discharge Date: 06/26/21 Admission Diagnoses (1) Admitted with dehydration: Status: Acute (2) Acute prerenal azotemia: Status: Acute (3) Thrombosed hemorrhoids: Status: Acute (4) Rectal pain: Status: Acute (5) Strangulated hemorrhoids: Status: Acute (6) Hyperkalemia: Status: Resolved (7) Anemia: Status: Acute (8) DM2 (diabetes mellitus, type 2): Status: Acute (9) HTN (hypertension): Status: Acute (10) Depression with anxiety: Status: Acute Discharge Diagnoses Discharge Diagnosis: 1. Thrombosed hemorrhoids surgically reduced 2. Strangulated hemorrhoids surgically fixed 3. Dehydration - now resolved 4. Iron deficiency anemia 5. Diabetes mellitus type 2 insulin-dependent 6. Hypertension stable 7. Hyperkalemia- resolved 8. Depression with anxiety- stable Discharge Medications Discharge Medications: Home Medication List atorvastatin 40 mg PO HS 06/24/21 [History] chlorthalidone 25 mg PO DAILY 06/24/21 [History] escitalopram oxalate 10 mg PO HS 06/24/21 [History] meloxicam [Mobic] 7.5 mg PO DAILY 06/24/21 [History] oxycodone-acetaminophen 1 tab PO TID 06/24/21 [History] ferrous gluconate 324 mg PO DAILY #30 tab 06/26/21 [Rx] Prescriptions: ferrous gluconate [facility] Hospital Course Vital Signs: Temperature 98.7 F Pulse Rate 92 Respiratory Rate 17 Blood Pressure [Left Arm] 148/73 Blood Pressure 159/74 O2 Sat by Pulse Oximetry 94 Latest Lab Results: Laboratory Last Values WBC 11.1 X10^3/uL (3.6-10.0) H 06/26/21 05:41 RBC 2.88 X10^6/uL (4.7-6.0) L 06/26/21 05:41 Hgb 8.5 g/dL (13.5-18.0) L 06/26/21 05:41 Hct 25.9 % (42.0-54.0) L 06/26/21 05:41 MCV 89.9 fL (80.0-100.0) 06/26/21 05:41 MCH 29.6 pg (27.0-34.0) 06/26/21 05:41 MCHC 33.0 g/dL (33.0-35.0) 06/26/21 05:41 RDW 14.0 % (11.6-16.5) 06/26/21 05:41 Plt Count 245 X10^3/uL (150.0-450.0) 06/26/21 05:41 MPV 6.8 fL (7.4-11.0) L 06/26/21 05:41 Neut % (Auto) 80.9 % (42.0-75.0) H 06/26/21 05:41 Lymph % (Auto) 9.6 % (21.0-51.0) L 06/26/21 05:41 [place] % (Auto) 9.1 % (0.0-13.0) 06/26/21 05:41 Eos % (Auto) 0.2 % (0.9-2.9) L 06/26/21 05:41 Baso % (Auto) 0.2 % (0.2-1.0) 06/26/21 05:41 Neut # (Auto) 9.0 x10^3/uL (2.2-4.8) H 06/26/21 05:41 Lymph # (Auto) 1.1 X10^3/uL (1.3-2.9) L 06/26/21 05:41 [place] # (Auto) 1.0 x10^3/uL (0.3-0.8) H 06/26/21 05:41 Eos # (Auto) 0.0 x10^3/uL (0.0-0.2) 06/26/21 05:41 Baso # (Auto) 0.0 X10^3/uL (0.0-0.1) 06/26/21 05:41 Absolute Nucleated RBC 0.1 /100WBC 06/26/21 05:41 Sodium 143 mmol/L (136-145) 06/26/21 05:41 Corrected Sodium 148 mmol/L (136-145) H 06/26/21 05:41 Potassium 5.1 mmol/L (3.5-5.1) 06/26/21 05:41 Chloride 112 mmol/L (98-107) H 06/26/21 05:41 Carbon Dioxide 22.9 mmol/L (21-32) 06/26/21 05:41 BUN 40 mg/dL (7-18) H 06/26/21 05:41 Creatinine 1.50 mg/dL (0.70-1.30) H 06/26/21 05:41 Est GFR (MDRD) Af Amer 59 (>60) 06/26/21 05:41 Est GFR (MDRD) Non-Af 49 (>60) L 06/26/21 05:41 Glucose 296 mg/dL (65-99) H 06/26/21 05:41 POC Glucose (mg/dL) 285 mg/dL (65-99) H 06/26/21 06:00 Calcium 7.7 mg/dL (8.5-10.1) L 06/26/21 05:41 Corrected Calcium 9.1 mg/dL (8.5-10.1) 06/26/21 05:41 Iron 16 ug/dL (50-175) L 06/25/21 04:29 Transferrin 154 mg/dL (202-364) L 06/25/21 04:29 Ferritin 69 ng/mL (26-388) 06/25/21 04:29 Total Bilirubin 0.30 mg/dL (0.2-1.0) 06/26/21 05:41 AST 6 Units/L (15-37) L 06/26/21 05:41 ALT 14 Units/L (12-78) 06/26/21 05:41 Alkaline Phosphatase 97 Units/L (46-116) 06/26/21 05:41 Total Protein 5.7 g/dL (6.4-8.2) L 06/26/21 05:41 Albumin 2.3 g/dL (3.4-5.0) L 06/26/21 05:41 Globulin 3.4 g/dL (2.5-4.5) 06/26/21 05:41 Albumin/Globulin Ratio 0.7 Ratio (1.1-2.1) L 06/26/21 05:41 Vitamin B12 432 pg/mL (193-986) 06/25/21 04:29 Folate 11.5 ng/mL (>8.6) 06/25/21 04:29 Specimen Type Clean catch urine 06/24/21 23:07 Urine Color Yellow (YELLOW) 06/24/21 23:07 Urine Appearance Clear (CLEAR) 06/24/21 23:07 Urine pH 5.0 (5.0 - 8.0) 06/24/21 23:[address] 1.015 (1.000-1.030) 06/24/21 23:07 Urine Protein 1+ (NEGATIVE) 06/24/21 23:07 Urine Glucose (UA) 2+ (NEGATIVE) 06/24/21 23:07 Urine Ketones Negative (NEGATIVE) 06/24/21 23:07 Urine Occult Blood Negative (NEGATIVE) 06/24/21 23:07 Urine Nitrite Negative (NEGATIVE) 06/24/21 23:07 Urine Bilirubin Negative (NEGATIVE) 06/24/21 23:07 Urine Urobilinogen Normal (NORMAL) 06/24/21 23:07 Ur Leukocyte Esterase Negative (NEGATIVE) 06/24/21 23:07 Urine RBC None seen /HPF (0-3) 06/24/21 23:07 Urine WBC 0-2 /HPF (0-5) 06/24/21 23:07 Ur Squamous Epith Cells Few /HPF (NEGATIVE) 06/24/21 23:07 Urine Bacteria Trace /HPF (NEGATIVE) 06/24/21 23:07 Urine Mucus Few /HPF (NEGATIVE) 06/24/21 23:07 Ur Culture Indicated? No/not indicated 06/24/21 23:07 SARS CoV-2 RNA Rapid ABE Negative (NEGATIVE) 06/24/21 20:14 Tissue Pathology To follow 06/25/21 14:05 Blood Type A POSITIVE 06/24/21 20:36 Antibody Screen Negative 06/24/21 20:36 Hospital Course: This is a 71 year old white male who came to the emergency department for rectal pain secondary to thrombosed and strangulated hemorrhoids. He was also found to be dehydrated with elevated creatinine and bun. General surgery was consulted to see the patient for his hemorrhoid problem. He was started on normal saline IV for rehydration therapy. For his diabetes he was covered with a sliding scale regular insulin per protocol. The following morning after admission Dr. Lew our general surgeon injected the hemorrhoids with Xylocaine and Lidocaine and removed these thrombosis. He was also found to be anemic, and at that time I ordered and anemia panel with show that he has iron deficiency anemia. Following day after surgery the patient was doing much better and reported he had no pain at this time. His hemoglobin a stable 8.5 this morning. This morning is creatinine is down for 1.50. I spoke to our general surgeon and other alsadi reported the findings that the patient was stable and doing better. And he recommended to go ahead and discharged him home after he saw him.he'll be discharged home this morning in stable condition and I will be following up with him in four days for Hospital follow-up. Instructions Instructions: Anemia Surgical Procedures for Hemorrhoids, Care After Hyperkalemia, [id number] Gastrointestinal Bleeding Surgical Procedures for Hemorrhoids Hemorrhoids, [id number] Nonsurgical Procedures for Hemorrhoids, Care After Hemorrhoids Forms: Excuse From Work or School Precautions for COVID19 [facility] Social Distancing
[2021-06-26 12:45] VITALS: BP 154/72
== END 2021-06-26 14:30 | disposition home or self-care (01) ==
LOC: ER 14:55 → ICU 14:55 → OBSVTOIN 20:00 → INTOOBSV 20:00 → ICU 21:24 → MED/SURG 06-25 17:54
PROVIDERS: ADMIT Family Medicine; ATTEND Family Medicine
DX: D64.89 Other specified anemias; R79.89 Other specified abnormal findings of blood chemistry; F32.89 Other specified depressive episodes; E11.65 Type 2 diabetes mellitus with hyperglycemia; K62.89 Other specified diseases of anus and rectum; K64.5 Perianal venous thrombosis; K64.8 Other hemorrhoids; E86.0 Dehydration; I10 Essential (primary) hypertension; E87.5 Hyperkalemia; Z20.822 Contact with and (suspected) exposure to COVID-19; F41.8 Other specified anxiety disorders